=== PATIENT | female | born 1960 | race Caucasian/White ===

== ENCOUNTER → 2019-12-28 11:11 | Outpatient (CLI) | payer OTHER, SELFPAY ==
--- NOTE | ~2019-12-28 | US_ITS ---
EXAMINATION: US carotid duplex BI DATE: 12/28/2019 11:42 INDICATION: Vertigo. Headache. Giddiness. TECHNIQUE: Grayscale, color Doppler, and pulsed Doppler images of the cervical carotid arteries were obtained. The degree of vessel stenosis is placed in one of the following categories: normal, <50%, 5 0-69%, >=70% but less than near-occlusion, near-occlusion, or total occlusion. Note that percent sten osis relative to normal distal artery lumen diameter is indirectly measured from velocity measurement s as described by Jordon, et al. Radiology 2003; 229:340-346. COMPARISON: None. FINDINGS: RIGHT: The right common carotid artery (CCA) peak systolic velocity (PSV) is 71 cm/s. The right internal car otid artery (ICA) PSV is 61 cm/s. The right ICA end-diastolic velocity (EDV) is 17 cm/s. The right IC A/CCA PSV ratio is 1.2. Grayscale and color Doppler images yield an estimate of <50% diameter reducti on from plaque in the ICA. There is antegrade flow in the right vertebral artery. LEFT: The left CCA PSV is 85 cm/s. The left ICA PSV is 90 cm/s. The left ICA EDV is 36 cm/s. The left ICA/C CA PSV ratio is 1.6. Grayscale and color Doppler images yield an estimate of <50% diameter reduction from plaque in the ICA. There is antegrade flow in the left vertebral artery. IMPRESSION: 1. <50% stenosis in the right internal carotid artery. 2. <50% stenosis in the left internal carotid artery. Reviewed, dictated and finalized at location A. 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
== END ==
PROVIDERS: PCP Family Medicine; Visit Provider Family Medicine
DX: R42 Dizziness and giddiness (principal); I65.23 Occlusion and stenosis of bilateral carotid arteries
CPT/HCPCS: 93880

== ENCOUNTER → 2020-01-05 10:36 | Outpatient (CLI) | payer OTHER, SELFPAY ==
--- NOTE | ~2020-01-05 | MR_ITS ---
EXAMINATION: MR brain/brain stem wo/w con EXAM DATE: 01/05/2020 11:28 INDICATION: Headache. TECHNIQUE: Multi-sequential, multiplanar MR images of the brain, brainstem, internal auditory canals were obtained without contrast. Whole brain sagittal T1, axial diffusion, gradient echo (T2*), T1, T 2, FLAIR sequences obtained. High resolution coronal 3-D FIESTA, coronal T1 FSE, axial T1 FSPGR of t he internal auditory canals. Patient was then injected with 20 cc Multihance contrast intravenously. Postcontrast axial and coronal T1 weighted whole brain, axial and coronal high resolution T1 IAC seq uences obtained. Correlation is made to head CT 03/28/2017. FINDINGS: No evidence of mastoid or middle ear opacification. The 7th/8th cranial nerve complexes a re symmetric, normal in course and caliber. No cerebellopontine angle masses. Posterior fossa unrem arkable. small ossified region along the left side of the falx. There are no areas of restricted diffusion to suggest acute infarction. There is no acute hemorrhage seen on the T2*, a hemosiderin sensitive sequ ence. The ventricles are normal in size. There are no extra-axial collections. Flow voids are see n in the cerebral arteries on the T2-weighted sequences consistent with their expected patency. Sof t tissue is unremarkable. There are no areas of abnormal enhancement on the post contrast images. IMPRESSION: 1. Unremarkable brain MRI examination. Reviewed, dictated and finalized at location B. 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
[2020-01-05 10:54] LABS: Estimated Glomerular Filt Rate > 60
== END ==
PROVIDERS: PCP Family Medicine; Visit Provider Family Medicine
DX: R51.9 Headache, unspecified (principal); R42 Dizziness and giddiness; G50.0 Trigeminal neuralgia
CPT/HCPCS: 70553; A9577

== ENCOUNTER → 2020-05-11 16:24 | Outpatient (CLI) | payer OTHER, SELFPAY ==
--- NOTE | ~2020-05-11 | MR_ITS ---
EXAMINATION: MRA brain wo con DATE: 05/11/2020 18:07 INDICATION: New daily persistent headache. TECHNIQUE: Magnetic resonance angiography (MRA) of the brain was performed without intravenous contra st with T1-weighted SPGR by the 3D [id number] technique. Maximum intensity projection 3D-reconstr uctions were obtained. COMPARISON: Brain MRI 01/05/2020, head CT 03/28/2017 FINDINGS: Left vertebral artery is dominant. There is no significant stenosis of basilar artery or the posterio r cerebral arteries. The posterior communicating arteries are normal. There is no significant stenosi s of the intracranial internal carotid arteries or anterior or middle cerebral arteries. Anterior com municating artery is normal. There is no aneurysm. IMPRESSION: 1. Normal head MRA. Reviewed, dictated and finalized at location A. IMPRESSION: 1. Normal head MRA.
== END ==
PROVIDERS: PCP Family Medicine; Visit Provider Psychiatry & Neurology Neurology
DX: G44.52 New daily persistent headache (NDPH) (principal)
CPT/HCPCS: 70544

== ENCOUNTER 2021-01-04 10:06 | Outpatient (CLI) | payer OTHER, SELFPAY ==
--- NOTE | 2021-01-04 | ECG_ITS ---
Measurements Intervals [place] Rate: 80 P: 38 UT: 148 QRS: -3 QRSD: 91 T: 33 QT: 383 QTc: 444 Interpretive Statements SINUS RHYTHM NONSPECIFIC T-WAVE ABNORMALITY- ANTERIOR LEADS BASELINE ARTIFACT- I, II, AVR, V4-V5 BORDERLINE ECG Electronically Signed On 01-04-2021 12:04:29 STATIONARY ENGINEER by Kevin Subramanian D.O.
[2021-01-04 10:47] LABS: Anion Gap 9 mmol/L (8-16); Blood Urea Nitrogen 12 mg/dL (7-17); Calcium 9.3 mg/dL (8.4-10.2); Carbon Dioxide 32 mmol/L (22-30); Chloride 99 mmol/L (98-107); Estimated Glomerular Filt Rate > 60; Glucose 112 mg/dL (65-110); Potassium 3.4 mmol/L (3.4-5.0); Sodium 140 mmol/L (137-145)
== END 2021-01-04 10:07 | disposition home or self-care (01) ==
PROVIDERS: PCP Family Medicine
DX: Z01.818 Encounter for other preprocedural examination (principal); I10 Essential (primary) hypertension
CPT/HCPCS: 36415; 80048; 93005

== ENCOUNTER 2021-01-10 06:57 | Emergency (ER) | payer OTHER, SELFPAY ==
[2021-01-10 07:11] VITALS: BP 169/109; PULSE 108; RESP 18; TEMP 36.8; O2SAT 97
[2021-01-10] MEDS: HYDROcodone/acetaminophen (*CRX) 5-325 MG TABLET 1 TAB PO (07:33)
[2021-01-10] MEDS: MORPHINE SULFATE (*CRX) 4 MG/ML INJ IM (07:33)
--- NOTE | 2021-01-10 08:03 | ED.GENADULT ---
HPI - General Adult General Chief complaint: Unspecified Stated complaint: throat pain Time Seen by Provider: 01/10/21 07:15 Source: patient History of Present Illness HPI narrative: Patient is a 60 y/o female complaining of sorethroat, difficulty with swallowing since her tonsillectomy surgery yesterday morning. She rates her throat pain as 8/10. Swallowing seems to make it worse. She states that she was prescribed liquid hydrocodone, but she usually has difficulty with swallowing liquid medicine all the time. She states that her uvula is irritated her throat making her feel like she can't breath. Related Data Allergies Allergy/AdvReac Type Severity Reaction Status Date / Time succinylcholine Allergy Unknown DON'T Verified 01/10/21 07:15 WAKE UP Sulfa (Sulfonamide Allergy Unknown RASH Verified 01/10/21 07:15 Antibiotics) Review of Systems Constitutional: Constitutional: Denies chills, Denies fever(s), Denies headache(s) and Denies weakness Eyes: Eyes: Denies blurry vision ENT: Denies headache(s), Denies neck pain and Reports sore throat Cardiovascular: Cardiovascular: Denies chest pain and Denies dyspnea Respiratory: Respiratory: Denies cough and Reports dyspnea Gastrointestinal: Gastrointestinal: Denies abdominal pain, Denies diarrhea, Denies nausea and Denies vomiting Genitourinary: Genitourinary: Denies hematuria and Denies dysuria Musculoskeletal: Musculoskeletal: Denies back pain and Denies neck pain Neurologic: Denies headache(s) and Denies weakness Exam Const: General: no acute distress and well developed Orientation/consciousness: oriented to person, oriented to place, oriented to time and patient oriented x3 HENMT: Head: normocephalic Ears: external ears normal General nose exam: Normal external nose present Throat: other (post op changes) Eyes: General: appearance normal, both eyes and all related structures Conjunctivae: conjunctivae normal Neck: Neck: normal visual inspection and full ROM Chest: Chest palpation & inspection: normal inspection of the chest and no tenderness Resp: Effort & Inspection: normal respiratory effort Auscultation: clear to auscultation bilaterally Cardio: Rate: regular rate Rhythm: regular rhythm GI: GI Palp: No abdominal tenderness and Yes Soft to palpation Skin: General skin exam: normal color and turgor normal Neuro: General: oriented to person, oriented to place, oriented to time and patient oriented x3 Cognition (Neuro): normal cognition Extrem: General: normal to inspection, full ROM and no pedal edema Psych: Appearance: grossly normal Mental Status: mental status grossly normal Affect: normal affect Course Reevaluation(s) Reevaluation #1: Rechecked. Patient feels better. She is able to swallow crush Hydrocodone pills. She feels comfortable with going home. She is instructed to call her ENT for follow up. Date: 01/10/21 Time: 09:20 Consultations Consultation #1: Discussed with Dr. Lama, who agrees with plan for discharge. Date: 01/10/21 Time: 09:52 Vital Signs Vital signs: Vital Signs Temperature 36.8 C 01/10/21 07:11 Pulse Rate 108 H 01/10/21 07:11 Respiratory Rate 18 01/10/21 07:11 Blood Pressure 169/109 H 01/10/21 07:11 Pulse Oximetry 97 01/10/21 07:11 Temperature 36.8 C 01/10/21 07:11 Pulse Rate 108 H 01/10/21 07:11 Respiratory Rate 18 01/10/21 07:11 Blood Pressure 169/109 H 01/10/21 07:11 Pulse Oximetry 97 01/10/21 07:11 Medical Decision Making Vital Signs Vital Signs: Vital Signs Temperature 36.8 C 01/10/21 07:11 Pulse Rate 108 H 01/10/21 07:11 Respiratory Rate 18 01/10/21 07:11 Blood Pressure 169/109 H 01/10/21 07:11 Pulse Oximetry 97 01/10/21 07:11 Temperature 36.8 C 01/10/21 07:11 Pulse Rate 108 H 01/10/21 07:11 Respiratory Rate 18 01/10/21 07:11 Blood Pressure 169/109 H 01/10/21 07:11 Pulse Oximetry 97 01/10/21 07:11 Discharge Plan Dischar
== END 2021-01-10 09:39 | disposition home or self-care (01) ==
PROVIDERS: Emergency Provider Emergency Medicine; PCP Family Medicine
DX: J02.9 Acute pharyngitis, unspecified (principal); G89.18 Other acute postprocedural pain
CPT/HCPCS: 96372; 99283; A9270; J2270

== ENCOUNTER 2021-01-13 05:55 | Emergency (ER) | payer OTHER, SELFPAY ==
[2021-01-13 06:04] VITALS: BP 168/99; PULSE 120; RESP 21; TEMP 36.7; O2SAT 96
--- NOTE | 2021-01-13 07:07 | PC.NURSE ---
Pt to INTAKE desk and states I am gonna go ahead and go, my is picking me up now. There are too many people coughing here and it makes me scared. Thank you. Pt exited ED doors in [facility].
== END 2021-01-13 07:07 | disposition left against medical advice (07) ==
PROVIDERS: PCP Family Medicine
DX: Z53.21 Procedure and treatment not carried out due to patient leaving prior to being seen by health care provider (principal)
CPT/HCPCS: 99199

== ENCOUNTER 2021-04-18 14:45 | Outpatient (CLI) | payer OTHER, SELFPAY ==
--- NOTE | ~2021-04-18 | MM_ITS ---
EXAMINATION: MM screening alexandra BI w aileen HISTORY: Screening TECHNIQUE: Craniocaudal and mediolateral oblique 3-D tomosynthesis images were obtained and synthetic 2-D images were generated. CAD analysis was submitted and interpreted. COMPARISON: Comparison to multiple prior studies sequentially, with oldest reviewed study dated 06/01. BREAST PARENCHYMAL COMPOSITION: There are scattered areas of fibroglandular density. FINDINGS: There is no evidence of suspicious mass, calcification, or architectural distortion to sugg est malignancy in either breast. There has been no suspicious interval change. IMPRESSION: 1. No mammographic evidence of malignancy. 2. Recommend routine screening mammography in one year. BI-RADS Category 1: Negative Reviewed, dictated and finalized at location A. 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
== END 2021-04-18 14:46 | disposition home or self-care (01) ==
PROVIDERS: PCP Family Medicine; Visit Provider Family Medicine
DX: Z12.31 Encounter for screening mammogram for malignant neoplasm of breast (principal)
CPT/HCPCS: 77063; 77067

== ENCOUNTER 2022-05-30 13:56 | Outpatient (CLI) | payer OTHER, SELFPAY ==
--- NOTE | ~2022-05-30 | XR_ITS ---
XR foot LT min 3V DATE: 05/30/2022 14:19 INDICATION: Left foot pain, lateral swelling TECHNIQUE: 4 views of left foot COMPARISON: None FINDINGS: There is a minimally displaced linear intra-articular fracture of the medial base of the pr oximal phalanx of the fifth digit. There is mild osteoarthritic change at the first metatarsophalangeal joint. There is mild posterior calcaneal enthesopathy. No other fracture or dislocation, periosteal reaction or bone destruction is detected. IMPRESSION: Minimally displaced intra-articular fracture of the medial base of the proximal phalanx o f the fifth digit Mild osteophyte is at first metatarsophalangeal joint Mild posterior calcaneal enthesopathy Reviewed, dictated and finalized at location B. IMPRESSION: Minimally displaced intra-articular fracture of the medial base of the proximal phalanx of the fifth digit Mild osteophyte is at first metatarsophalangeal joint Mild posterior calcaneal enthesopathy
== END 2022-05-30 13:57 | disposition home or self-care (01) ==
LOC: ANHIMG 14:00
PROVIDERS: PCP Family Medicine; Visit Provider Nurse Practitioner Family
DX: S92.912A Unspecified fracture of left toe(s), initial encounter for closed fracture (principal); M25.775 Osteophyte, left foot; M77.32 Calcaneal spur, left foot
CPT/HCPCS: 73630

== ENCOUNTER 2022-06-05 09:56 | Outpatient (CLI) | payer OTHER, SELFPAY ==
--- NOTE | ~2022-06-05 | US_ITS ---
EXAMINATION: US soft tissue head and neck DATE: 06/05/2022 10:33 INDICATION: Left neck mass. TECHNIQUE: Multiple grayscale and Doppler ultrasound images of the left neck were obtained. COMPARISON: None FINDINGS: There are normal lymph nodes in the left neck in the patient's area of concern. IMPRESSION: 1. No abnormal neck mass or lymphadenopathy. Reviewed, dictated and finalized at location A.
== END 2022-06-05 09:57 | disposition home or self-care (01) ==
PROVIDERS: PCP Family Medicine; Visit Provider Nurse Practitioner Family
DX: R22.1 Localized swelling, mass and lump, neck (principal); M79.672 Pain in left foot
CPT/HCPCS: 76536

== ENCOUNTER 2023-09-27 11:33 | Outpatient (CLI) | payer OTHER, SELFPAY ==
--- NOTE | ~2023-09-27 | MM_ITS ---
EXAMINATION: MM screening alexandra BI w aileen HISTORY: Screening TECHNIQUE: Craniocaudal and mediolateral oblique 3-D tomosynthesis images were obtained and synthetic 2-D images were generated. CAD analysis was submitted and interpreted. COMPARISON: Comparison to multiple prior studies sequentially, with oldest reviewed study dated 06/01. BREAST PARENCHYMAL COMPOSITION: Not dense: There are scattered areas of fibroglandular density. FINDINGS: There is no evidence of suspicious mass, calcification, or architectural distortion to sugg est malignancy in either breast. There has been no suspicious interval change. IMPRESSION: 1. No mammographic evidence of malignancy. 2. Recommend routine screening mammography in one year. BI-RADS Category 1: Negative Reviewed, dictated and finalized at location B.
--- NOTE | ~2023-09-27 | XR_ITS ---
XR hip RT min 2V 09/27/2023 11:56 Indication: Right hip pain Procedure: 2 views right hip Comparison: No prior studies for comparison. Findings: No fracture, subluxation or dislocation. No significant soft tissue abnormality. No foreign bodies. Impression: 1: No significant bone or joint abnormality. Reviewed, dictated and finalized at location B. Impression: 1: No significant bone or joint abnormality.
--- NOTE | ~2023-09-27 | XR_ITS ---
XR knee RT 3V Ordering provider: Claudine Alba, LOSS PREVENTION ASSOCIATE History: . PAIN IN RIGHT KNEE . Comparison: None. FINDINGS: BONES: No acute fracture or dislocation. JOINT SPACES: Normal. SOFT TISSUES: Normal. IMPRESSION: No acute osseous abnormality right knee. Reviewed, dictated and finalized at location A.
== END 2023-09-27 11:34 ==
PROVIDERS: PCP Nurse Practitioner Family; Visit Provider Nurse Practitioner Family
DX: Z12.31 Encounter for screening mammogram for malignant neoplasm of breast (principal); M25.561 Pain in right knee; M25.551 Pain in right hip
CPT/HCPCS: 73502; 73562; 77063; 77067

== ENCOUNTER 2024-01-08 09:28 | Outpatient (CLI) | payer OTHER, SELFPAY ==
--- NOTE | ~2024-01-08 | XR_ITS ---
EXAMINATION: XR abdomen/kub 1V DATE: 01/08/2024 09:43 INDICATION: Constipation. TECHNIQUE: A supine view of the abdomen on 4 radiographs was obtained. COMPARISON: None. FINDINGS: There are no dilated loops of bowel. There is a moderate volume of stool in the colon. Calc ifications in the pelvis are likely phleboliths. IMPRESSION: 1. Normal bowel gas pattern. Reviewed, dictated and finalized at location A. TER PLUMBING
== END 2024-01-08 09:29 | disposition home or self-care (01) ==
PROVIDERS: PCP Nurse Practitioner Family; Visit Provider Nurse Practitioner Family
DX: K59.00 Constipation, unspecified (principal)
CPT/HCPCS: 74018